=== PATIENT | female | born 1975 | race Caucasian/White ===

== ENCOUNTER 2017-12-14 00:03 | Emergency (ER) | payer BC ==
--- NOTE | 2017-12-14 00:20 | EDPHY ---
H & P Stated Complaint: Breakthrough pain, R wrist injur Time Seen by Provider: 12/14/17 00:13 HPI/ROS: CHIEF COMPLAINT: Wrist pain HISTORY OF PRESENT ILLNESS: 42-year-old female arrives via private vehicle. Patient was seen at [facility] [place] earlier today after she fell skiing sustaining a fracture. She was splinted discharged home. She went home. She was given analgesia. She notes breakthrough pain. No paresthesia distally. No discoloration of her digits. She will plan on following up with [facility] PRIMARY CARE PROVIDER: REVIEW OF SYSTEMS: A ten point review of systems was performed and is negative with the exception of the items mentioned in the HPI PHYSICAL EXAM (Prior to examination, patient consented to physical exam, hands were washed and my usual and customary physical exam procedures followed) 1) GENERAL: Well-developed, well-nourished, alert and oriented. Appears to be in no acute distress. 2) HEAD: Normocephalic 3) HEENT: Pupils equal, round, reactive to light bilaterally. 4) LUNGS: Breathing comfortably. 5) MUSCULOSKELETAL: Right upper extremity sugar-tong splint in place. Fingers have normal coloration, capillary refill less than 2 sec, normal temperature. Patient's splint was taken off there is no cast padding in place. There are few areas that were pinching the patient's skin. Patient notes decreasing pain after removal splint. Compartments are soft. Pulses are brisk. Intact skin. 6) NEUROLOGIC: Radial, ulnar, median nerve function intact with no deficits appreciated on exam Procedure: Splint A sugar-tong splint was applied by ER technician helper instrument with cast padding. After application of the splint I returned and re-examined the patient. The splint was adequately immobilizing the joint and distal to the splint the patient's circulation and sensation were intact. Patient shows no signs of compartment syndrome. Was given orthopedic precautions. - Personal History LMP (Females 10-55): 8-14 Days Ago Current Tetanus Diphtheria and Acellular Pertussis (TDAP): Yes - Medical/Surgical History Hx Asthma: No Hx Chronic Respiratory Disease: No Hx Diabetes: No Hx Cardiac Disease: No Hx Renal Disease: No Hx Cirrhosis: No Hx Alcoholism: No Hx HIV/AIDS: No Hx Splenectomy or Spleen Trauma: No Other PMH: Migraines - Social History Smoking Status: Never smoked Constitutional: Initial Vital Signs Temperature (C) 36.3 C 12/14/17 00:09 Heart Rate 56 L 12/14/17 00:09 Respiratory Rate 18 12/14/17 00:09 Blood Pressure 87/64 L 12/14/17 00:09 O2 Sat (%) 98 12/14/17 00:09 O2 Delivery Mode Room Air Allergies/Adverse Reactions: diclofenac Allergy (Verified 12/14/17 00:07) Medical Decision Making ED Course/Re-evaluation: I reviewed the patient's x-rays in the emergency department. She has no evidence of open fracture. Doubt compartment syndrome. Plan will be analgesia , re-building of splint and discharge and follow up with [facility] tomorrow . Departure - Departure Disposition: Home, Routine, Self-Care Clinical Impression: Distal radius fracture, right Qualifiers: Encounter type: initial encounter Fracture type: closed Fracture morphology: Colles' Qualified Code(s): S52.531A - Colles' fracture of right radius, initial encounter for closed fracture Skiing accident Qualifiers: Encounter type: initial encounter Qualified Code(s): V00.328A - Other snow-ski accident, initial encounter Condition: Good Instructions: Wrist Fracture in Adults (ED) Additional Instructions: Return to the ER immediately if you experience discoloration, have worsening pain, numbness, tingling, or any other symptoms that concern you. If you received x-rays in the emergency department today, be advised, that ligamentous , tendon, muscular, and other non-bony injury cannot be fully ruled out. Try to keep your affected extremity elevated above the level of your chest, and keep cold packs on the affected area, for the next 48 hours. Take your pain medication as directed. Referrals: Jas Matta MD [Medical Doctor] - 1-2 days without fail
[2017-12-14] MEDS ORDERED: ONDANSETRON 4 MG/2 ML VIAL IVP ONE (00:47)
[2017-12-14] MEDS ORDERED: HYDROmorphONE/DILAUDID 1 MG/ML INJ IVP ONE (00:47)
[2017-12-14] MEDS ORDERED: KETOROLAC 30 MG/1 ML SDV IVP ONE (00:52)
[2017-12-14 01:46] VITALS: BP 90/58; PULSE 55; RESP 16; TEMP 98.8; O2SAT 97
== END 2017-12-14 01:44 | disposition home or self-care (01) ==
DX: S52.531A Colles' fracture of right radius, initial encounter for closed fracture (principal); V00.321A Fall from snow-skis, initial encounter; Y93.23 Activity, snow (alpine) (downhill) skiing, snowboarding, sledding, tobogganing and snow tubing
CPT/HCPCS: 96374; J1170; J1885; J2405